=== PATIENT | female | born 1955 | race Caucasian/White ===

== ENCOUNTER 2021-09-07 06:45 | Outpatient (CLI) | payer MEDICARE, SELFPAY ==
--- NOTE | 2021-09-07 | CT_ITS ---
WS: [id number] LDCT LUNG CANCER SCREENING TECHNIQUE: Noncontrast CT of the chest with coronal and sagittal reformatted images. CLINICAL INFORMATION: NICOTINE DEPENDENCE COMPARISON: None. DLP: 75.31 mGy.cm DIvol: 2.[address] scans at [facility] use at least one of these dose optimization techniques: automat ed exposure control; mA and/or kV adjustment per patient size (includes targeted exams where dose is matched to clinical indication); or iterative reconstruction. FINDINGS: Both lungs are well aerated. No acute pulmonary infiltrates. No consolidation or pleural fluid. Subse gmental atelectasis both lower lobes. Chronic appearing anterior wedging in the upper thoracic spine with endplate Schmorl's nodes. Small amount of fibrosis in the lung apices. Small fibrotic appearing subpleural nodule left upper lobe posteriorly measuring 3 mm. Aortic calcification. No mediastinal or hilar lymphadenopathy. No axillary lymphadenopathy. CT/CT lung screening [id number] IMPRESSION: LUNG-RADS: 2-Benign Appearance or Behavior FOLLOW UP: 12 Month: Continue annual screening with LDCT
--- NOTE | 2021-09-07 08:35 | MM_ITS ---
WS: [id number] BILATERAL SCREENING DIGITAL MAMMOGRAM WITH CAD HISTORY: SCREENING COMPARISON: 04/07/2012 and 09/14/2016 and 09/16/2016 Bilateral CC and MLO views submitted. Computer aided detection analyzed. Breast composition: The breasts are heterogeneously dense, which may obscure small masses. No suspici ous masses, microcalcifications or architectural distortion. Calcifications previously described in t he medial LEFT breast have been removed by biopsy. No suspicious masses or increasing calcifications within either breast. MM/[place] [id number] IMPRESSION: BI-RADS: 2-Benign FOLLOW UP: 1 Year Follow-up
== END 2021-09-07 06:46 | disposition home or self-care (01) ==
PROVIDERS: Visit Provider Physician Assistant
DX: Z12.31 Encounter for screening mammogram for malignant neoplasm of breast (principal); Z12.2 Encounter for screening for malignant neoplasm of respiratory organs; F17.210 Nicotine dependence, cigarettes, uncomplicated; J98.11 Atelectasis; M48.54XA Collapsed vertebra, not elsewhere classified, thoracic region, initial encounter for fracture; I70.0 Atherosclerosis of aorta
CPT/HCPCS: 71271; 77067

== ENCOUNTER 2021-09-16 19:59 | Emergency (ER) | payer MEDICARE, SELFPAY ==
[2021-09-16 20:08] VITALS: BP 148/93; PULSE 76; RESP 18; TEMP 36.6; O2SAT 94; BMI 18.6
--- NOTE | 2021-09-16 20:16 | ECG_ITS ---
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 Measurements Intervals [place] Rate: 65 P: 75 RI: 195 QRS: 73 QRSD: 84 T: 61 QT: 392 QTc: 410 Interpretive Statements SINUS RHYTHM Poor R wave progression POSSIBLE LEFT ATRIAL ENLARGEMENT [-0.1mV P-WAVE IN V1/V2] No previous ECG available for comparison Electronically Signed On 09-16-2021 20:46:39 CARDIOLOGIST by Talia Mallory M.D. [email or web address]
--- NOTE | 2021-09-16 20:16 | XRR_ITS ---
PROCEDURE INFORMATION: Exam: XR Chest Exam date and time: 09/16/2021 8:16 PM Age: 66 years old Clinical indication: Pain; Left-sided; Prior surgery; Surgery type: Mold removed from base of lung; Patient HX: Cp, SOB TECHNIQUE: Imaging protocol: XR of the chest. Views: 1 view. COMPARISON: CT lung screening [id number] 09/07/2021 7:08 AM FINDINGS: Lungs: Unremarkable. No consolidation. Pleural spaces: Unremarkable. No pleural effusion. No pneumothorax. Heart/Mediastinum: Unremarkable. No cardiomegaly. Bones/joints: Unremarkable. XR/XR chest 1V portable [id number] IMPRESSION: No acute findings. Radiation Dose CTDIVOL = (mGy): DLP = (mGy-cm)
--- NOTE | 2021-09-16 20:19 | W.ED.CHESTPA ---
HPI - Chest Pain General: Chief Complaint: Chest Pain Stated Complaint: Chest pain Time Seen by Provider: 09/16/21 20:03 Source: patient Mode of arrival: ambulatory Limitations: no limitations History of Present Illness: HPI narrative: States that over the last week she has been under a lot of stress and having intermittent chest pain. She states that she has gets a sharp grabbing pain in her chest at times. States it happened earlier today she was seen by her PCP yesterday and is set up for an outpatient stress test given nitro. States that she was helping a friend in [place] and started having pain with this. States pain is currently 2 out of 10 is improving denies any worsening improving factors. Associated symptoms: Reports dyspnea; Deny abdominal pain, fever(s), nausea or vomiting Review of Systems Const: Denies: fever(s), chills, body aches or change in appetite Eyes: Denies: blurry vision or eye discomfort ENMT: Denies: throat pain or dental pain Card: Reports: chest pain Resp: Reports: dyspnea GI: Denies: abdominal pain, nausea, vomiting or diarrhea : Denies: dysuria Musc: Denies: neck pain or back pain Skin/Breast: Denies: rash Neuro: Denies: headache(s) Psych: Denies: depression Patrick/Lymph: Denies: easy bruising All/Imm: Denies: urticaria PFSH ED PFSH: Social History Smoking and tobacco status: current every day smoker cigarettes Packs smoked per day: 0.5 Years cigarettes smoked: 53 Physical Exam Const: COMMON NORMALS: no acute distress, patient oriented x3 and healthy appearing HENMT: COMMON NORMALS: normocephalic and atraumatic HEAD & SCALP: normocephalic and atraumatic Eye: COMMON NORMALS: Equal, round and reactive pupils present and EOMs intact bilaterally PUPIL: Yes Equal, round and reactive pupils present Neck/C-Spine: COMMON NORMALS: full ROM and supple Chest: COMMONS NORMALS: normal inspection of the chest and normal palpation of entire chest wall Resp: COMMON NORMALS: normal respiratory effort, No retractions, No use of accessory muscles and clear to auscultation bilaterally AUSCULTATION: clear to auscultation bilaterally Cardio: COMMON NORMALS: regular rate, regular rhythm and No murmurs present (Cardio) RATE: regular rate RHYTHM: regular rhythm GI: COMMON NORMALS: Normal to inspection, nondistended, normoactive bowel sounds present, Soft to palpation, non-tender and no masses PALPATION: Yes Soft to palpation Extremity: COMMON NORMALS: normal to inspection and full ROM Neuro: COMMON NORMALS: patient oriented x3, moves all extremities and no focal motor deficits Psych: COMMON NORMALS: mental status grossly normal, Normal thought process present and cooperative THOUGHT PROCESS: Normal thought process present Skin: COMMON NORMALS: no rashes or lesions noted and no wounds GENERAL SKIN EXAM: no rashes or lesions noted Course Vital Signs: Vital signs: Vital Signs Temperature 97.8 F 09/16/21 20:08 Pulse Rate 72 09/16/21 22:18 Respiratory Rate 18 09/16/21 20:24 Blood Pressure 131/72 09/16/21 22:18 Pulse Oximetry 97 09/16/21 22:18 MDM - Chest Pain MDM Narrative: Medical decision making narrative: Patient presents for chest pains atypical in nature initial repeat troponins here are negative D-dimer is negative as well. She feels improved here feel she is stable for discharge she is to get the stress test as scheduled and return if worsening she understands agrees to plan. Lab Data: Labs: Lab Results 09/16/21 09/16/21 09/16/21 20:21 20:21 20:21 WBC 13.7 10^3/uL H 10 ^3/uL (4.0-10.0) RBC 5.51 10^6/uL H 10 ^6/uL (4.1-5.3) Hgb 12.0 g/dL g/dL (11.5-15.3) Hct 35.5 % L % (37.0-47.0) MCV 64.4 fl L fl (81-99) MCH 21.8 pg L pg (28.0-34.0) MCHC 33.8 g/dL g/dL (30.0-36.0) RDW 17.2 % H % (12.1-15.1) Plt Count 350 10^3/cmm 10^3 /cmm (130-400) MPV 10.5 fL H fL (7.4-10.4) Neut % (Auto) 64.3 % % Lymph % (Auto) 26.7 % % Wallace % (Auto) 7.1 % % Eos % (Auto) 1.3 % % Baso % (Auto) 0.3 % % Neut # (Auto) 8.82 10^3/uL H 10 ^3/uL (1.8-7.7) Lymph # (Auto) 3.7 10^3/uL 10^3/ uL (0.8-4.8) Wallace # (Auto) 1.0 10^3/uL H 10^ 3/uL (0.2-0.9) Eos # (Auto) 0.2 10^3/uL 10^3/ uL (0.0-0.8) Baso # (Auto) 0.0 10^3/uL 10^3/ uL (0.0-0.1) Nucleated RBC % (a uto) 0 % % Nucleated RBCs # 0.0 /100WBC /100W BC D-Dimer <= 0.27 ug/mIFEU ug/mIFEU (0-0.59) Sodium 138 mmol/L mmol/L (136-145) Potassium 3.6 mmol/L mmol/L (3.5-5.1) Chloride 102 mmol/L mmol/L (98-107) Carbon Dioxide 22 mmol/L mmol/L (22-29) Anion Gap 17.6 (5-19) BUN 16 mg/dL mg/dL (8-23) Creatinine 0.7 mg/dL mg/dL (0.5-0.9) GFR Calculation 84.2 mL/min L mL/ min (90-130) Glucose 96 mg/dL mg/dL (65-115) Calculated Osmolal ity 287 mOsm/kg mOsm/ kg (285-295) Calcium 9.2 mg/dL mg/dL (8.5-10.5) Total Bilirubin 0.5 mg/dL mg/dL (0.15-1.2) AST 20 U/L U/L (0-32) ALT 20 U/L U/L (0-33) Alkaline Phosphata se 72 IU/L IU/L (35-105) Troponin T Baselin e Troponin T 120 Min [place] Delta Troponin T Total Protein 6.7 g/dL g/dL (6.6-8.7) Albumin 4.3 g/dL g/dL (3.5-5.2) Globulin 2.4 g/dL g/dL (1.3-4.6) 09/16/21 09/16/21 20:21 22:08 WBC RBC Hgb Hct MCV MCH MCHC RDW Plt Count MPV Neut % (Auto) Lymph % (Auto) Wallace % (Auto) Eos % (Auto) Baso % (Auto) Neut # (Auto) Lymph # (Auto) Wallace # (Auto) Eos # (Auto) Baso # (Auto) Nucleated RBC % (a uto) Nucleated RBCs # D-Dimer Sodium Potassium Chloride Carbon Dioxide Anion Gap BUN Creatinine GFR Calculation Glucose Calculated Osmolal ity Calcium Total Bilirubin AST ALT Alkaline Phosphata se Troponin T Baselin e 8 ng/L ng/L (0-10) Troponin T 120 Min [place] 6.41 ng/L ng/L (0-10) Delta Troponin T -1.59 ABS# L ABS# (0-10) Total Protein Albumin Globulin Imaging Data^: CXR: Attestation: I personally reviewed and interpreted this imaging study as follows: Radiologist's impression: [address] [address] XRay Report Signed Patient: Tammie Reddy Unit #: [id number] : 1955 Age/Sex: 66 / F ADM Date: 09/16/21 Loc: ER Room/Bed: Attending Dr: Ordering Provider/Ordering MD: Theodore Luciano MD Date of Service: 09/16/21 Procedure(s): XR chest 1V portable [id number] Accession Number(s): [id number] Report Number: [id number] PROCEDURE INFORMATION: Exam: XR Chest Exam date and time: 09/16/2021 8:16 PM Age: 66 years old Clinical indication: Pain; Left-sided; Prior surgery; Surgery type: Mold removed from base of lung; Patient HX: Cp, SOB TECHNIQUE: Imaging protocol: XR of the chest. Views: 1 view. COMPARISON: CT lung screening [id number] 09/07/2021 7:08 AM FINDINGS: Lungs: Unremarkable. No consolidation. Pleural spaces: Unremarkable. No pleural effusion. No pneumothorax. Heart/Mediastinum: Unremarkable. No cardiomegaly. Bones/joints: Unremarkable. XR/XR chest 1V portable [id number] IMPRESSION: No acute findings. Radiation Dose CTDIVOL = (mGy): DLP = (mGy-cm) Dictated By: Geovanny Cohen MD Signed By: Geovanny Cohen MD Signed Date/Time: 09/16/212036 DD/ 15 EKG Data^: EKG 1: Attestation: I personally reviewed and interpreted this EKG as follows: EKG interpretation date: 09/16/21 EKG interpretation time: 20:13 Interpretation: nsr hr [address] or t wave abnormalities qrs 84 qtc 404 Discharge Plan Discharge Patient Disposition: Home Clinical Impression: Chest pain Qualifiers: Chest pain type: unspecified Qualified Code(s): R07.9 - Chest pain, unspecified Condition: Stable Prescriptions: No Action No Known Home Medications RF: 0 Discharge Orders: Discharge ED (Routine); Ordered 09/16/21 Ordered By: Theodore Luciano Referrals: [facility], [Primary Care Provider] - Discharge Diet: Advance as tolerated Discharge Activity: Resume usual activity Patient Instructions: Chest Pain (ED) Coding Level of Care Code ED Serology Teacher for Chg Fwd Exam Comprehensive
[2021-09-16 20:24] VITALS: BP 148/93; PULSE 68; RESP 18; O2SAT 96
[2021-09-16 20:30] LABS: Basophils % 0.3 %; Eosinophils # 0.2 10^3/uL (0.0-0.8); Eosinophils % 1.3 %; Hematocrit 35.5 % (37.0-47.0); Lymphocytes # 3.7 10^3/uL (0.8-4.8); Lymphocytes % 26.7 %; Mean Corpuscular HGB Conc 33.8 g/dL (30.0-36.0); Mean Corpuscular Hemoglobin 21.8 pg (28.0-34.0); Mean Corpuscular Volume 64.4 fl (81-99); Mean Platelet Volume 10.5 fL (7.4-10.4); Monocytes % 7.1 %; Neutrophils # 8.82 10^3/uL (1.8-7.7); Neutrophils % 64.3 %; Nucleated Red Blood Cells % 0 %; Platelet Count 350 10^3/cmm (130-400); Red Blood Count 5.51 10^6/uL (4.1-5.3); Red Cell Distribution Width 17.2 % (12.1-15.1); White Blood Count 13.7 10^3/uL (4.0-10.0)
[2021-09-16 20:54] LABS: D Dimer <= 0.27 ug/mIFEU (0-0.59)
[2021-09-16 20:55] LABS: Slide Review Slide Review Perform
[2021-09-16 21:03] LABS: Troponin(5th) Baseline 8 ng/L (0-10)
[2021-09-16 21:07] LABS: Alanine Aminotransferase 20 U/L (0-33); Albumin Level 4.3 g/dL (3.5-5.2); Alkaline Phosphatase 72 IU/L (35-105); Anion Gap 17.6 (5-19); Aspartate Amino Transferase 20 U/L (0-32); Blood Urea Nitrogen 16 mg/dL (8-23); Calcium 9.2 mg/dL (8.5-10.5); Carbon Dioxide 22 mmol/L (22-29); Chloride 102 mmol/L (98-107); Globulin 2.4 g/dL (1.3-4.6); Glomerular Filtration Rate 84.2 mL/min (90-130); Glucose 96 mg/dL (65-115); Osmolality Calculated 287 mOsm/kg (285-295); Potassium 3.6 mmol/L (3.5-5.1); Sodium 138 mmol/L (136-145); Total Bilirubin 0.5 mg/dL (0.15-1.2); Total Protein 6.7 g/dL (6.6-8.7)
[2021-09-16 21:35] VITALS: BP 129/71; PULSE 69; O2SAT 97
[2021-09-16 22:18] VITALS: BP 131/72; PULSE 72; O2SAT 97
[2021-09-16 22:48] LABS: Troponin 5 2HR 6.41 ng/L (0-10)
[2021-09-16 22:49] LABS: Troponin 5 2HR Delta -1.59 ABS# (0-10)
[2021-09-16 23:21] VITALS: BP 123/78; PULSE 72; O2SAT 98
== END 2021-09-16 23:20 | disposition home or self-care (01) ==
PROVIDERS: Emergency Provider Emergency Medicine
DX: R07.9 Chest pain, unspecified (principal); F17.210 Nicotine dependence, cigarettes, uncomplicated
CPT/HCPCS: 36415; 71045; 80053; 84484; 85025; 85378; 93005; 99283

== ENCOUNTER 2021-10-23 08:56 | Outpatient (CLI) | payer MEDICARE, SELFPAY ==
[2021-10-23 09:12] VITALS: BMI 16.7
--- NOTE | 2021-10-23 09:12 | ECG_ITS ---
[facility] Test Date: 2021-10-23 Pat Name: Tammie Reddy Department: Room: Gender: Female Ux Visual Designer: : 1955 Requested By: Yasemin Briceno Order Number: [id number] Last MD: EMMETT ABAD Interpretive Statements NAME OF STUDY: EXERCISE SESTAMIBI STRESS TEST INDICATION: Stable Angina EXERCISE DATA: The patient was exercised by Steven protocol. Baseline heart rate was 83 beats per minute. Baseline blood pressure was 143/70 millimeters of mercury. Target heart rate was 156 beats per minute. Maximum heart rate achieved was 142, which was 91% of the target heart rate. Maximum blood pressure was 180/73 millimeters of mercury. Total exercise time was 9 minutes 30 sec. Maximum METs achieved was 13.5, maximum VO2 was 47.3. The reason for ending the test was maximal effort achieved. The patient complained of shortness of breath during the stress test, which then resolved at the end of the test. ELECTROCARDIOGRAM: BASELINE: Showed sinus rhythm, normal axis, no significant ST-T changes at the baseline noted. EXERCISE: At the peak exercise level, no significant ST-T changes suggestive of ischemia noted. RECOVERY: During the recovery period, heart rate dropped appropriately. No significant ST-T changes in the recovery suggestive of ischemia noted. CONCLUSION: 1. Exercise capacity good. 2. Heart rate response was appropriate. 3. Blood pressure response was appropriate. 4. Symptoms not suggestive of ischemia. 5. Electrocardiogram portion of the stress test was not suggestive of ischemia. 6. Nuclear scan will be documented separately. Electronically Signed On 10-27-2021 21:43:34 MEMORIAL MARKER DESIGNER by EMMETT ABAD [id number]
--- NOTE | 2021-10-23 09:16 | NMCV_ITS ---
NM telma perf SPECT r/s* [id number] Tammie Reddy Age: 66 Gender: F : 1955 Exam Date: 10/23/2021 09:16 Ordering Phys: Yasemin Otero Technologist: HOWIE Cardenas Exam Location: [facility] Indications: SHORTNESS OF BREATH STRESS TEST Please see separate stress test report in [facility] for full findings IMAGE PROTOCOL Rest/Stress 1 Exercise Day Radiopharmaceutical Dose (mCi) Administration Site Administered by Rest: Tc-99m 10.5 IV HOWIE Fields Sestamibi Stress:Tc-99m 31.9 IV HOWIE Cardenas Sestamiluna Rest: 23-Oct-2021 60 Discovery 630 Stress: 23-Oct-2021 15 Discovery 630 Radiopharmaceutical was injected at 85 % maximum heart rate. Images obtained in supine and prone position. SPECT RESULTS Technical Quality: Excellent Raw Data Analysis: Normal Image Corrections: No attenuation or motion correction applied Summed Stress Score: 0 Summed Rest Score: 0 Summed Difference Score: 0 PERFUSION FINDINGS SPECT images demonstrate homogeneous tracer distribution throughout the myocardium. FUNCTIONAL RESULTS (calculated via Gated SPECT) Stress Image LV EF (%): 79 Stress EDV (mL):67 TID: 0.95 Stress ESV (mL):14 Rest Image LV EF (%): 79 FUNCTIONAL FINDINGS: There is normal left ventricular systolic function. IMPRESSIONS Myocardial perfusion imaging is normal. EKG segment will be documented separately Brian Hughes MD (Electronically Signed) Final Date: 24 October 2021 15:13 S
[2021-10-23 12:07] VITALS: BP 122/68; PULSE 86
== END 2021-10-23 08:57 | disposition home or self-care (01) ==
PROVIDERS: PCP Physician Assistant; Visit Provider Physician Assistant
DX: I20.8 Other forms of angina pectoris (principal); R06.02 Shortness of breath
CPT/HCPCS: 78452; 93017; A9500

== ENCOUNTER 2021-12-17 05:31 | Emergency (ER) | payer MEDICARE, SELFPAY ==
[2021-12-17] VITALS (9 sets, daily range): BP systolic 131–144; BP diastolic 58–70; PULSE 53–69; RESP 15–25; TEMP 36.6; O2SAT 97–100; BMI 19.0
--- NOTE | 2021-12-17 05:40 | XRR_ITS ---
PROCEDURE INFORMATION: Exam: XR Abdomen Exam date and time: 12/17/2021 5:40 AM Age: 66 years old Clinical indication: Abdominal pain; Generalized; Prior surgery; Surgery type: Hysterectomy; Patient HX: Patient was prepping for a colonoscopy this morning and presents to er in excruciating diffuse abd pain with nausea. TECHNIQUE: Imaging protocol: XR of the abdomen. Views: Frontal supine view of the abdomen. 1 View. COMPARISON: CR XR chest 1V portable [id number] 09/16/2021 8:23 PM FINDINGS: Gastrointestinal tract: Nonspecific bowel gas pattern. Intraperitoneal space: No free air. Bones/joints: Degenerative changes of the spine seen. XR/XR KUB portable [id number] IMPRESSION: Nonspecific bowel gas pattern.
[2021-12-17] MEDS: ondansetron 2 mg/ML SDV 2 mL 4 MG IVP (05:51)
[2021-12-17] MEDS: morphine 4 mg/mL SDV 1 mL IVP ×3 (05:51→07:42)
[2021-12-17] MEDS: sodium chloride 0.9% 1,000 ML 999 ML IV ×3 (05:53→08:15)
--- NOTE | 2021-12-17 05:54 | W.ED.ABDPA2 ---
HPI - Abdominal Pain General: Chief Complaint: Abdominal Pain Stated Complaint: abd pain Time Seen by Provider: 12/17/21 05:46 Source: patient Mode of arrival: ambulatory Limitations: no limitations History of Present Illness: 66-year-old female presents to the emergency room with complaints of abdominal pain. She localizes the pain to the right lower quadrant. She was doing prep for routine screening colonoscopy overnight pain began around 3 AM. She did have 1 loose bowel movement after the pain began there is no hematochezia or melena. She has not vomited but is very nauseous. She has previously had colonoscopies without difficulties. States that after taking all the prep she only had a couple of small the media bowel movements no significant amounts. She is previously had a hysterectomy denies any other abdominal surgeries. After arrival here is noted severity of the pain seems to come and go in waves. MD elicited complaint: abdominal pain Pertinent past history: other (Patient was prepping for colonoscopy overnight) Onset (ago): hour(s) Pain Consistency: intermittent Location: RLQ Severity: severe Quality: cramping and stabbing Radiation: none Exacerbating factors: nothing Relieving factors: nothing Associated Symptoms: Reports bloating, diarrhea and poor appetite; Denies anorexia, belching, change in bowel habits, change in stool character, chills, coffee ground emesis, constipation, GI cramping, dyspepsia, dysuria, excessive flatus, fever(s), heartburn, hematochezia, hematuria, hematemesis, fecal incontinence, loose stools, melena, nausea, syncope and vomiting Review of Systems Const: Denies: fever(s) or chills ENMT: Denies: throat pain, ear or mastoid pain, nasal discharge or nasal congestion Card: Denies: syncope Resp: Denies: dyspnea, productive cough or non-productive cough GI: Reports: diarrhea and bloating; Denies: nausea, vomiting, hematemesis, coffee ground emesis, heartburn, constipation, GI cramping, belching, excessive flatus, fecal incontinence, change in bowel habits, change in stool character, hematochezia or melena : Denies: dysuria or hematuria Skin/Breast: Denies: rash or pruritus PFS ED PFSH: Medical History Glossitis Xerostomia Surgical History History of hysterectomy History of lumpectomy of left breast History of lung surgery Social History Smoking and tobacco status: current every day smoker cigarettes Packs smoked per day: 0.5 Years cigarettes smoked: 53 Female Reproductive History: Other reproductive history: Previous hysterectomy Physical Exam Narrative: EXAM NARRATIVE: Limited abdominal exam due to patient's discomfort and inability to cooperate Const: ORIENTATION/CONSCIOUSNESS: Yes awake, Yes oriented to person, Yes oriented to place and Yes oriented to time HENMT: COMMON NORMALS: normocephalic, atraumatic and hearing grossly normal bilaterally HEAD & SCALP: normocephalic and atraumatic Neck/C-Spine: COMMON NORMALS: no JVD Resp: COMMON NORMALS: normal respiratory effort, No retractions, No use of accessory muscles and clear to auscultation bilaterally AUSCULTATION: clear to auscultation bilaterally Cardio: COMMON NORMALS: no JVD, regular rate, regular rhythm and No murmurs present (Cardio) RATE: regular rate RHYTHM: regular rhythm GI: AUSCULTATION: Yes normoactive bowel sounds PALPATION: Yes Tenderness to palpation present (GI) (Diffuse unable to localize) and Yes Guarding due to palpation present (GI) (Appears voluntary even with light touch) : COMMON NORMALS: Yes no CVA tenderness BLADDER/KIDNEY EXAM: Yes no CVA tenderness Back/Pelvis: COMMON NORMALS: no CVA tenderness Extremity: COMMON NORMALS: normal to inspection, capillary refill normal, no clubbing, cyanosis or edema, no calf tenderness and no pedal edema Neuro: SENSORIUM/ORIENTATION: Yes oriented to person, Yes oriented to place and Yes oriented to time Skin: COMMON NORMALS: no rashes or lesions noted GENERAL SKIN EXAM: no rashes or lesions noted Course Vital Signs: Vital signs: Vital Signs Temperature 97.8 F 12/17/21 05:37 Pulse Rate 60 12/17/21 09:43 Respiratory Rate 15 12/17/21 09:43 Blood Pressure 137/63 12/17/21 09:43 Pulse Oximetry 97 12/17/21 09:43 MDM - Abdominal Pain Medical Decision Making Pain improved after titrated doses of morphine and Phenergan. CT shows retained fluid contents in the bowel proximal to the hepatic flexure. There is no obvious obstruction I think the prep that she took is causing a lot of cramping she is much better now she has what looks to be a reactive leukocytosis there is no surgical findings on the CT discussed with Dr. Lindsey. She was closely Dr. Zhao today for colonoscopy called and discussed with him of concern would be the fact that it stopped at the hepatic flexure even though there is no identifiable mass or restriction there. We will have her use some enemas clear liquid diet for the next 48 hours advance as tolerated contact Dr. Zhao's office to reschedule. Medical Records I reviewed the patient's medical records. Lab Data I reviewed the patient's lab results. : 12/17/21 05:50 12/17/21 05:50 Labs/Radiology: Radiology Impressions KUB X-Ray 12/17/21 05:40 IMPRESSION: Nonspecific bowel gas pattern. Abdomen/Pelvis CT 12/17/21 06:02 IMPRESSION: 1. Stomach and small bowel are fluid distended. Proximal colon is also fluid distended. Cause of obstruction is not apparent. There is a changing caliber near the hepatic flexure but no mass identified. As per Dr. Ward patient was receiving prep for colonoscopy and increased fluid content is probably secondary to the preparation. 2. The appendix is not identified. 3. There are a few tiny foci of air which cannot be definitely placed placed within the lumen or extraluminal in the RIGHT lower quadrant. Correlate with lactic acid levels. 4. Prior hysterectomy. 5. No ascites. Notified Vince Ward DO at 12/17/2021 8:10 AM. Laboratory Results WBC 14.1 10^3/uL (4.0-10.0) H 12/17/21 05:50 RBC 6.37 10^6/uL (4.1-5.3) H 12/17/21 05:50 Hgb 13.7 g/dL (11.5-15.3) 12/17/21 05:50 Hct 41.5 % (37.0-47.0) 12/17/21 05:50 MCV 65.1 fl (81-99) L 12/17/21 05:50 MCH 21.5 pg (28.0-34.0) L 12/17/21 05:50 MCHC 33.0 g/dL (30.0-36.0) 12/17/21 05:50 RDW 17.5 % (12.1-15.1) H 12/17/21 05:50 Plt Count 463 10^3/cmm (130-400) H 12/17/21 05:50 MPV 10.9 fL (7.4-10.4) H 12/17/21 05:50 Neut % (Auto) 68.4 % 12/17/21 05:50 Lymph % (Auto) 25.5 % 12/17/21 05:50 [place] % (Auto) 4.0 % 12/17/21 05:50 Eos % (Auto) 1.1 % 12/17/21 05:50 Baso % (Auto) 0.6 % 12/17/21 05:50 Neut # (Auto) 9.65 10^3/uL (1.8-7.7) H 12/17/21 05:50 Lymph # (Auto) 3.6 10^3/uL (0.8-4.8) 12/17/21 05:50 [place] # (Auto) 0.6 10^3/uL (0.2-0.9) 12/17/21 05:50 Eos # (Auto) 0.2 10^3/uL (0.0-0.8) 12/17/21 05:50 Baso # (Auto) 0.1 10^3/uL (0.0-0.1) 12/17/21 05:50 Nucleated RBC % (auto) 0 % 12/17/21 05:50 Nucleated RBCs # 0.0 /100WBC 12/17/21 05:50 Sodium 130 mmol/L (136-145) L 12/17/21 05:50 Potassium 4.0 mmol/L (3.5-5.1) 12/17/21 05:50 Chloride 96 mmol/L (98-107) L 12/17/21 05:50 Carbon Dioxide 17 mmol/L (22-29) L 12/17/21 05:50 Anion Gap 21.0 (5-19) H 12/17/21 05:50 BUN 11 mg/dL (8-23) 12/17/21 05:50 Creatinine 0.9 mg/dL (0.5-0.9) 12/17/21 05:50 GFR Calculation 63.0 mL/min (90-130) L 12/17/21 05:50 Glucose 154 mg/dL (65-115) H 12/17/21 05:50 Calculated Osmolality 272 mOsm/kg (285-295) L 12/17/21 05:50 Lactate 1.8 mmol/L (0.5-2.2) 12/17/21 07:12 Calcium 10.9 mg/dL (8.5-10.5) H 12/17/21 05:50 Total Bilirubin 0.8 mg/dL (0.15-1.2) 12/17/21 05:50 AST 29 U/L (0-32) 12/17/21 05:50 ALT 23 U/L (0-33) 12/17/21 05:50 Alkaline Phosphatase 101 IU/L (35-105) 12/17/21 05:50 Total Protein 7.7 g/dL (6.6-8.7) 12/17/21 05:50 Albumin 5.2 g/dL (3.5-5.2) 12/17/21 05:50 Globulin 2.5 g/dL (1.3-4.6) 12/17/21 05:50 Lipase 102 U/L (13-60) H 12/17/21 05:50 Discharge Plan Discharge Patient Disposition: Home Clinical Impression: Abdominal pain, Side effect of medication Condition: Stable Prescriptions: New promethazine 25 mg tablet 25 mg PO Q6H PRN (Reason: nausea and vomiting) Qty: 20 0RF No Action Nitrostat 0.4 mg Tablet, Sublingual 0.4 mg SUBLINGUAL Q5M PRN (Reason: Chest Pain) 0RF Rx Instructions: do not exceed 3 doses per episode David-E 400 mg Tablet 400 mg PO DAILY 0RF Rx Instructions: administer on an empty stomach Multi For Her 50 Plus 400-80 mcg Capsule 1 cap PO DAILY 0RF Discharge Orders: Discharge ED (Routine); Ordered 12/17/21 Ordered By: Vince Ward Referrals: Yasemin Otero PA [Primary Care Provider] - Discharge Diet: Clear Liquid Patient Instructions: Abdominal Pain (ED), Opioid Safety Activity Restrictions/Additional Instructions: Clear liquid diet for 48 hours then advance as tolerated. Follow-up with Dr. Zhao to reschedule your colonoscopy. Coding Level of Care Code ED Business Support Professional for Chg Fwd Exam Comprehensive
[2021-12-17 05:58] LABS: Basophils # 0.1 10^3/uL (0.0-0.1); Basophils % 0.6 %; Eosinophils # 0.2 10^3/uL (0.0-0.8); Eosinophils % 1.1 %; Hematocrit 41.5 % (37.0-47.0); Hemoglobin 13.7 g/dL (11.5-15.3); Lymphocytes # 3.6 10^3/uL (0.8-4.8); Lymphocytes % 25.5 %; Mean Corpuscular Hemoglobin 21.5 pg (28.0-34.0); Mean Corpuscular Volume 65.1 fl (81-99); Mean Platelet Volume 10.9 fL (7.4-10.4); Monocytes # 0.6 10^3/uL (0.2-0.9); Neutrophils # 9.65 10^3/uL (1.8-7.7); Neutrophils % 68.4 %; Nucleated Red Blood Cells % 0 %; Platelet Count 463 10^3/cmm (130-400); Red Blood Count 6.37 10^6/uL (4.1-5.3); Red Cell Distribution Width 17.5 % (12.1-15.1); White Blood Count 14.1 10^3/uL (4.0-10.0)
--- NOTE | 2021-12-17 06:02 | CT_ITS ---
WS: [id number] CT ABDOMEN AND PELVIS WITH CONTRAST HISTORY: Worsening abdominal pain for 3 months. Nausea and vomiting. TECHNIQUE: Imaging performed of the abdomen and pelvis with IV contrast. Single phase imaging of the abdomen. Coronal and sagittal reformats are submitted. All CT scans at [facility] use at [address] one of these dose optimization techniques: automated exposure control; mA and/or kV adjustment per patient size (includes targeted exams where dose is matched to clinical indication); or iterative re construction. IV CONTRAST: Omnipaque 300; 75 mL IV. Oral contrast: No DLP: 633.88 mGy.cm COMPARISON: None available. Lower thorax: Linear atelectasis at the RIGHT lung base. Mildly enlarged cardiac chambers. No hiatal hernia. Liver/biliary system: Normal size liver. Low-attenuation 5 mm nodule in the LEFT lobe of the liver is too small to characterize. No additional nodules. Normal portal vein. Gallbladder: Normal. No gallstones or wall thickening. No pericholecystic fluid. Pancreas: 2 mm stone in the pancreatic head towards the uncinate process. This stone does appear jose d cent to the pancreatic duct and the common bile duct. Spleen: Normal size spleen. No mass or infarct. Adrenal glands: Normal. Right kidney: Normal. Left kidney: Normal. Aorta: Mild atherosclerosis with no aneurysm. Lymphadenopathy: None. Free fluid: None. GI tract: Moderate distention of the stomach with fluid. There is mild fluid distention of the small bowel. Increasing fluid in the distal small bowel and the proximal colon. The appendix is not definit billie identified. There are several tiny foci of air in the RIGHT lower quadrant which cannot definitel y be placed within the lumen of the GI tract or external to the GI tract. There is a slight change in transition near the hepatic flexure of the colon. Abdominal wall: Unremarkable abdominal wall. No hernia. Pelvis: No free fluid. Prior hysterectomy. Dilated, fluid-filled loops of small bowel extend into the pelvis. Bones: Mild spondylitic changes. CT/CT abdomen pelvis w con* [id number] IMPRESSION: 1. Stomach and small bowel are fluid distended. Proximal colon is also fluid d istended. Cause of obstruction is not apparent. There is a changing caliber serafin r the hepatic flexure but no mass identified. As per Dr. Ward patient was r eceiving prep for colonoscopy and increased fluid content is probably secondary to the preparation. 2. The appendix is not identified. 3. There are a few tiny foci of air which cannot be definitely placed placed w ithin the lumen or extraluminal in the RIGHT lower quadrant. Correlate with lac tic acid levels. 4. Prior hysterectomy. 5. No ascites. Notified Vince Ward DO at 12/17/2021 8:10 AM.
[2021-12-17 06:17] LABS: Albumin Level 5.2 g/dL (3.5-5.2); Alkaline Phosphatase 101 IU/L (35-105); Blood Urea Nitrogen 11 mg/dL (8-23); Calcium 10.9 mg/dL (8.5-10.5); Carbon Dioxide 17 mmol/L (22-29); Chloride 96 mmol/L (98-107); Globulin 2.5 g/dL (1.3-4.6); Glucose 154 mg/dL (65-115); Lipase 102 U/L (13-60); Osmolality Calculated 272 mOsm/kg (285-295); Sodium 130 mmol/L (136-145); Total Bilirubin 0.8 mg/dL (0.15-1.2); Total Protein 7.7 g/dL (6.6-8.7)
[2021-12-17 06:20] LABS: Alanine Aminotransferase 23 U/L (0-33); Aspartate Amino Transferase 29 U/L (0-32)
[2021-12-17 06:22] LABS: Slide Review Slide Review Perform
[2021-12-17] MEDS: iohexol 300 mg/mL 100 mL Btl IV (07:35)
--- NOTE | 2021-12-17 07:35 | PC.NURSE ---
Received report assumed care. No changes noted from report. Continues to moan with pain. States pain meds arent helping.
[2021-12-17 07:46] LABS: Lactate (Lactic Acid level) 1.8 mmol/L (0.5-2.2)
[2021-12-17] MEDS: promethazine 25 mg/mL SDV 1 mL IM (07:48)
== END 2021-12-17 09:46 | disposition home or self-care (01) ==
PROVIDERS: Emergency Medicine; Emergency Provider Family Medicine; PCP Physician Assistant
DX: R10.9 Unspecified abdominal pain (principal); T50.905A Adverse effect of unspecified drugs, medicaments and biological substances, initial encounter; F17.210 Nicotine dependence, cigarettes, uncomplicated
CPT/HCPCS: 36415; 74018; 74177; 80053; 83605; 83690; 85025; 96361; 96372; 96374; 96375; 96376; 99284; J2270; J2405; J2550; J7030; Q9967

== ENCOUNTER 2022-10-04 13:41 | Outpatient (CLI) | payer MEDICARE, SELFPAY ==
--- NOTE | 2022-10-04 13:46 | CT_ITS ---
WS: [id number] LDCT LUNG CANCER SCREENING HISTORY: NICOTINE DEPENDENCE, CIGARETTES TECHNIQUE: Axial imaging performed from the apices to 1 cm below the costophrenic angles. Coronal and sagittal reformats are submitted with axial MIP series. All CT scans at [facility] use at least one of these dose optimization techniques: automated exposure control; mA and/or kV adjustment per patient size (includes targeted exams where dose is matched to clinical indication); or iterativ e reconstruction. DLP: 73.19 mGy.cm DIvol: Mean CTDIvol: 1.60 (mGy) COMPARISON: 09/07/2021 Diagnostic quality: Satisfactory Lung Nodules: No new or enlarging pulmonary nodules. Again noted is a 3 mm subpleural nodule in the p osterior LEFT upper lobe. Linear subsegmental areas of atelectasis in the lower lung ochoa bilateral ly. No endobronchial lesions. Lungs: Hyperexpanded from emphysema. Heart: Mild cardiomegaly. The very small amount of pleural thickening. Other findings: No adenopathy. Mild atherosclerosis aorta and ectasia. Mild anterior wedging of T5 an d T6 from Schmorl's nodes. CT/CT lung screening [id number] IMPRESSION: LUNG-RADS: 1-Negative FOLLOW UP: 12 Month: Continue annual screening with LDCT OTHER FINDINGS (S MODIFIER): None.
--- NOTE | 2022-10-04 14:23 | MR_ITS ---
WS: [id number] MRI CERVICAL SPINE NONCONTRAST HISTORY: CERVICAL RADICULOPATHY COMPARISON: None available. Technique: Multiplanar, multisequence noncontrast imaging of the cervical spine. Moderate increase in cervical lordosis. 2 mm anterolisthesis of C2. Severe disc space narrowing with disc bulging and osteophytosis from C3 through C6. Small amount of increased T2 signal in the RIGHT lateral cervical cord at C5-6. Craniocervical junction, C1 and C2 relationship, odontoid process and soft tissues are normal. C2-C3: Normal. C3-C4: Osteophytic ridging and disc bulging. Moderate LEFT disc osteophyte complex causing mild encro achment into the foramen. Small central disc protrusion. Mild central and bilateral foraminal stenosi s. C4-C5: Marked annular disc bulging and osteophytic ridging. Moderate size central disc protrusion wit h bilateral foraminal osteophytes. There is deformity of the cervical canal. Severe central and moder ate foraminal stenosis. C5-C6: Diffuse osteophytic ridging with central disc protrusion. Bilateral foraminal osteophytes. Sev ere central with moderate foraminal stenosis. C6-C7: Mild disc bulging and facet arthritis. No high-grade stenosis. C7-T1: Normal. Paraspinal soft tissue are normal. MR/MR cervical spin wo con* [id number] IMPRESSION: 1. Severe central and moderate bilateral foraminal stenosis at C4-5 and C5-6 d ue to combination of disc and osteophytosis. 2. Focal myelomalacia RIGHT lateral cord at C5-6. 3. Moderate LEFT foraminal disc osteophyte complex at C3-4. 4. Small central disc protrusion at C3-4. Mild central and bilateral foraminal stenosis.
== END 2022-10-04 13:42 | disposition home or self-care (01) ==
LOC: RAD 13:41
PROVIDERS: PCP Physician Assistant; Visit Provider Physician Assistant
DX: Z12.2 Encounter for screening for malignant neoplasm of respiratory organs (principal); F17.210 Nicotine dependence, cigarettes, uncomplicated; M54.16 Radiculopathy, lumbar region; M48.02 Spinal stenosis, cervical region; G95.89 Other specified diseases of spinal cord; M25.78 Osteophyte, vertebrae; M50.21 Other cervical disc displacement, high cervical region
CPT/HCPCS: 71271; 72141

== ENCOUNTER 2023-01-21 13:26 | Outpatient (CLI) | payer OTHER, SELFPAY ==
--- NOTE | 2023-01-21 13:37 | XR_ITS ---
WS: [id number] SCREENING DEXA SCAN [employer] CLINICAL INFORMATION: OSTEOPOROSIS COMPARISON: None. FINDINGS: The L1-L4 bone mineral density measures 0.973 g/cm2. This corresponds to a T score score of -1.7 and Z score of 0.6. Left femoral neck bone mineral density measures 0.667 g/cm2. This corresponds to a T score of -2.7 an d Z score of -1.0. Right femoral neck bone mineral density measures 0.658 g/cm2. This corresponds to a T score -2.8of an d Z score of -1.1. Mean femoral neck bone mineral density measures 0.663 g/cm2. This corresponds to a T score of -2.7 an d Z score of -1.0. XR/XR DEXA axial skeleton* [id number] IMPRESSION: Osteopenia lumbar spine. Osteoporosis femoral necks. Patient's FRAX calculated 10 year probability for major osteoporotic fracture i s 17.4 % and osteoporotic hip fracture is 8.4%.
== END 2023-01-21 13:27 | disposition home or self-care (01) ==
PROVIDERS: PCP Family Medicine; Visit Provider Family Medicine
DX: M81.0 Age-related osteoporosis without current pathological fracture (principal)
CPT/HCPCS: 77080

== ENCOUNTER 2023-02-02 10:01 | Outpatient (RCR) | payer OTHER, SELFPAY | END 2023-02-04 23:59 | disposition home or self-care (01) | LOC: SOT 10:01 | PROVIDERS: PCP Family Medicine; Visit Provider Family Medicine | DX: S54.02XD Injury of ulnar nerve at forearm level, left arm, subsequent encounter (principal); X58.XXXD Exposure to other specified factors, subsequent encounter | CPT/HCPCS: 97110; 97165 ==

== ENCOUNTER 2023-03-18 10:12 | Emergency (ER) | payer OTHER, SELFPAY ==
[2023-03-18 10:29] VITALS: BP 153/88; PULSE 68; RESP 18; TEMP 36.8; O2SAT 99; BMI 18.1
--- NOTE | 2023-03-18 10:44 | W.ED.ABDPA2 ---
HPI - Abdominal Pain General: Chief Complaint: Abdominal Pain Stated Complaint: upper abd pain Time Seen by Provider: 03/18/23 10:30 Source: patient Mode of arrival: ambulatory Limitations: no limitations History of Present Illness: Patient is a 68-year-old female who presents to the ED today with a complaint of upper abdominal pain/cramping. Patient states she felt normal when she woke up this morning but began noticing some epigastric crampy-like sensation that seems to be intermittent. She states she never had any nausea or vomiting. Pain does not seem to radiate into her chest and she does not complain of any chest pain, shortness of breath, difficulty breathing, palpitations. Bowel movements have been normal. No urinary symptoms. She has not had any fevers. No previous abdominal surgeries. She also states when pain began she also had 1-2 episodes where her left eye became slightly blurry. Upon arrival to the ED she states her vision is normal. She states she never had any loss of vision. No neurologic complaints or deficits. MD elicited complaint: abdominal pain Pertinent past history: none Onset (ago): hour(s) Pain Consistency: intermittent Location: Epigastric Severity: moderate Quality: cramping Radiation: none Migration to: no migration Exacerbating factors: nothing Relieving factors: nothing Associated Symptoms: Denies change in bowel habits, chills, diarrhea, dysuria, fever(s), nausea, syncope and vomiting Related Data: Patient : No Review of Systems Const: Denies: fever(s), chills, body aches, fatigue or malaise Eyes: Reports: blurry vision (resolved now); Denies: blind spots, photophobia, eye discomfort, eye discharge, eye redness, floaters or seeing flashes Card: Denies: chest pain, palpitations, irregular heart rhythm, edema, lightheadedness, syncope or pre-syncope Resp: Denies: dyspnea, pain on inspiration or chest congestion GI: Reports: abdominal pain; Denies: nausea, vomiting, diarrhea or change in bowel habits : Denies: flank pain, difficulty voiding, dysuria, urinary frequency or urinary urgency Musc: Denies: neck pain, back pain, extremity pain or joint pain Skin/Breast: Denies: rash Neuro: Denies: headache(s), numbness in extremities, weakness in extremities, sensory changes, lack of coordination, difficulty walking, dizziness, vertigo, confusion, behavioral changes, Slurred speech present, difficulty communicating thoughts or seizure-like activity PFSH ED PFSH: Medical History Glossitis Xerostomia Surgical History History of hysterectomy History of lumpectomy of left breast History of lung surgery Social History Smoking and tobacco status: current every day smoker cigarettes Packs smoked per day: 0.5 Years cigarettes smoked: 53 Physical Exam Const: COMMON NORMALS: no acute distress, patient oriented x3, no limitations, alert and well nourished GENERAL APPEARANCE: cooperative ORIENTATION/CONSCIOUSNESS: Yes awake, Yes oriented to person, Yes oriented to place and Yes oriented to time HENMT: COMMON NORMALS: normocephalic and atraumatic HEAD & SCALP: normal to inspection, normocephalic and atraumatic FACE & SINUS: normal facial exam MOUTH: tongue normal (no deviation ) Eye: COMMON NORMALS: Equal, round and reactive pupils present, EOMs intact bilaterally, conjunctivae normal and normal visual flores by confrontation GENERAL EYE: appearance normal, both eyes and all related structures and normal light reflex VISUAL ACUITY: Yes acuity normal VISUAL FLORES: No peripheral vision loss, No central vision loss, No left visual field cut, No right visual field cut, No bitemporal visual field cut, No binasal visual field cut and No visual field cut by quadrant ALIGNMENT: Yes alignment normal PERIORBITAL: periorbital findings normal EYELID: eyelids normal CONJUNCTIVA: Yes conjunctivae normal SCLERA: sclerae normal CORNEA: Yes corneas normal PUPIL: Yes Equal, round and reactive pupils present and Yes Pupil accommodation reflex normal DIRECT OPHTHALMOSCOPY: Yes normal light reflex Neck/C-Spine: COMMON NORMALS: full ROM, no lymphadenopathy, supple and no meningeal signs Chest: COMMONS NORMALS: normal inspection of the chest and normal palpation of entire chest wall Resp: COMMON NORMALS: normal respiratory effort and clear to auscultation bilaterally AUSCULTATION: clear to auscultation bilaterally Cardio: COMMON NORMALS: regular rate and regular rhythm RATE: regular rate RHYTHM: regular rhythm GI: COMMON NORMALS: Normal to inspection, nondistended, normoactive bowel sounds present, Soft to palpation, No hepatosplenomegaly present and no masses INSPECTION: Yes normal to inspection AUSCULTATION: Yes normoactive bowel sounds PALPATION: Yes Soft to palpation, Yes Tenderness to palpation present (GI) (epigastric ), No Guarding due to palpation present (GI), No Rigid due to palpation and Yes No hepatosplenomegaly present : COMMON NORMALS: Yes no CVA tenderness BLADDER/KIDNEY EXAM: Yes no CVA tenderness Back/Pelvis: COMMON NORMALS: no CVA tenderness and thoracic and lumbar spine normal to inspection Extremity: COMMON NORMALS: normal to inspection GENERAL: Yes normal exam except as noted Neuro: MARIA ESTHER COMA SCALE: document GCS findings Patrick coma scale eye opening: Spontaneous Patrick coma scale verbal response: Orientated Maria Esther coma scale motor response: Obey commands Maria Esther coma scale total score: 15 COMMON NORMALS: patient oriented x3, CN's II-XII intact bilaterally, moves all extremities, no focal motor deficits, no sensory deficits noted and gait normal SENSORIUM/ORIENTATION: Yes alert, Yes oriented to person, Yes oriented to place and Yes oriented to time MENINGEAL SIGNS: Yes no meningeal signs SPEECH: speech normal GAIT: Yes Normal gait present MOTOR EXAM: 5/5 motor strength present throughout Skin: COMMON NORMALS: no rashes or lesions noted GENERAL SKIN EXAM: no rashes or lesions noted Course Vital Signs: Vital signs: Vital Signs Temperature 98.3 F 03/18/23 10:29 Pulse Rate 58 L 03/18/23 11:33 Respiratory Rate 16 03/18/23 11:33 Blood Pressure 138/62 03/18/23 11:33 Pulse Oximetry 98 03/18/23 11:33 Oxygen Delivery Me thod Room Air 03/18/23 11:33 MDM - Abdominal Pain Medical Decision Making CT scan showing many small and large bowel loops or fluid distended. No obvious obstruction. She does have some thickening and enhancement of small bowel loops seen with enteritis. We will have patient begin a bland liquid diet over the next 48 hours and slowly advance as tolerated. Patient reports her colonoscopy is UTD (performed by Dr. Zhao approximately a year ago). Radiologist did comment on a distended bladder and some mild dilatation of her renal collecting system. When asked about this patient states for many many months she has had sensations of incomplete bladder emptying. She can void easily but feels like she never fully evacuates. She states she has spoken to her primary care provider/[facility] about this. I will place referral for urology for further evaluation. Return ED precautions given. Lab Data 03/18/23 11:29 03/18/23 11:29 Labs/Radiology: Radiology Impressions Abdomen/Pelvis CT 03/18/23 11:00 IMPRESSION: 1. Fluid-filled small and large bowel loops similar to December 17, 2021. No evidence of high-grade obstruction. 2. Sigmoid constipation. 3. Mild thickening and enhancement of small bowel loops in LEFT upper quadrant can be seen with small bowel enteritis. 4. Mild dilatation of the RIGHT renal collecting systems slightly progressed. Urine distended bladder. 5. Correlation for bladder outlet obstruction. 6. No other significant changes compared to previous. Laboratory Results WBC 10.7 10^3/uL (4.0-10.0) H 03/18/23 11:29 RBC 6.26 10^6/uL (4.1-5.3) H 03/18/23 11:29 Hgb 13.7 g/dL (11.5-15.3) 03/18/23 11:29 Hct 41.6 % (37.0-47.0) 03/18/23 11:29 MCV 66.5 fl (81-99) L 03/18/23 11:29 MCH 21.9 pg (28.0-34.0) L 03/18/23 11:29 MCHC 32.9 g/dL (30.0-36.0) 03/18/23 11:29 RDW 18.2 % (12.1-15.1) H 03/18/23 11:29 Plt Count 341 10^3/cmm (130-400) 03/18/23 11:29 MPV Not Reportable 03/18/23 11: Neut % (Auto) 57.7 % 03/18/23 11: Lymph % (Auto) 31.9 % 03/18/23 11:29 [facility] % (Auto) 6.7 % 03/18/23 11:29 Eos % (Auto) 2.6 % 03/18/23 11:29 Baso % (Auto) 0.7 % 03/18/23 11:29 Neut # (Auto) 6.18 10^3/uL (1.8-7.7) 03/18/23 11: Lymph # (Auto) 3.4 10^3/uL (0.8-4.8) 03/18/23 11:29 [facility] # (Auto) 0.7 10^3/uL (0.2-0.9) 03/18/23 11:29 Eos # (Auto) 0.3 10^3/uL (0.0-0.8) 03/18/23 11:29 Baso # (Auto) 0.1 10^3/uL (0.0-0.1) 03/18/23 11: Nucleated RBC % (auto) 0 % 03/18/23 11: Nucleated RBCs # 0.0 /100WBC 03/18/23 11:29 Sodium 138 mmol/L (136-145) 03/18/23 11:29 Potassium 4.6 mmol/L (3.5-5.1) 03/18/23 11: Chloride 103 mmol/L (98-107) 03/18/23 11: Carbon Dioxide 26 mmol/L (22-29) 03/18/23 11:29 Anion Gap 13.6 (5-19) 03/18/23 11:29 BUN 17 mg/dL (8-23) 03/18/23 11:29 Creatinine 0.7 mg/dL (0.5-0.9) 03/18/23 11:29 GFR Calculation 83.7 mL/min (90-130) L 03/18/23 11:29 Glucose 94 mg/dL (65-115) 03/18/23 11: Calculated Osmolality 287 mOsm/kg (285-295) 03/18/23 11:29 Calcium 9.2 mg/dL (8.5-10.5) 03/18/23 11:29 Total Bilirubin 0.6 mg/dL (0.15-1.2) 03/18/23 11: AST 28 U/L (0-32) 03/18/23 11:29 ALT 29 U/L (0-33) 03/18/23 11:29 Alkaline Phosphatase 88 U/L (35-105) 03/18/23 11:29 Total Protein 7.3 g/dL (6.6-8.7) 03/18/23 11: Albumin 4.9 g/dL (3.5-5.2) 03/18/23 11: Globulin 2.4 g/dL (1.3-4.6) 03/18/23 11: Lipase 74 U/L (13-60) H 03/18/23 11:29 Urine Color Yellow (Yellow) 03/18/23 12:33 Urine Appearance Clear (CLEAR) 03/18/23 12:33 Urine pH 6 (5-7) 03/18/23 12:33 Ur Specific Banks 1.010 (1.005-1.030) 03/18/23 12:33 Urine Protein Neg (Negative) 03/18/23 12:33 Urine Glucose (UA) Norm (Normal) 03/18/23 12:33 Urine Ketones Negative (Negative) 03/18/23 12:33 Urine Blood 2+ (Negative) H 03/18/23 12:33 Urine Nitrate Negative (Negative) 03/18/23 12:33 Urine Bilirubin Neg (Negative) 03/18/23 12:33 Urine Urobilinogen Norm mg/dL (Negative) 03/18/23 12:33 Ur Leukocyte Esterase Negative (Negative) 03/18/23 12:33 Urine RBC 5-10 /hpf (0-2) H 03/18/23 12:33 Urine WBC 0-4 /hpf (0-5) H 03/18/23 12:33 Ur Squamous Epith Cells 0-4 /hpf (0-5) H 03/18/23 12:33 Amorphous Sediment Not Reportable 03/18/23 12:33 Urine Bacteria Not Reportable 03/18/23 12:33 Discharge Plan Discharge Patient Disposition: Home Clinical Impression: Feeling of incomplete bladder emptying, Enteritis Condition: Stable Prescriptions: No Action nitroglycerin [Nitrostat] 0.4 mg Tablet, Sublingual 0.4 mg SUBLINGUAL Q5M PRN (Reason: Chest Pain) Rx Instructions: do not exceed 3 doses per episode David-E 400 mg Tablet 400 mg PO QAM Rx Instructions: administer on an empty stomach aspirin 325 mg Tablet 325 mg PO Q6H PRN (Reason: Headache) Tylenol Ex Str Rapid Release 500 mg Tablet 1,000 mg PO Q6H PRN (Reason: Pain) Aleve 220 mg Tablet 220 mg PO Q12H PRN (Reason: Pain) albuterol sulfate 90 mcg/actuation HFA aerosol inhaler 2 puff INHALATION Q4H PRN (Reason: Shortness Of Breath) Vitamin D3 50 mcg (2,000 unit) Capsule 50 mcg PO DAILY Nb [employer] Protein P See Rx Instructions .ROUTE .COMPLEX Rx Instructions: mix 2 tablespoons with 2 tablespoons of ground flaxseed with 2 tablespoons of extra virgin olive oil and drinks once a day Discharge Orders: Discharge ED (Routine); Ordered 03/18/23 Ordered By: Martha Kaye Referrals: Lucila Mathur MD [Primary Care Provider] - Patient Instructions: Enteritis (ED) Activity Restrictions/Additional Instructions: As discussed I want you to begin a bland liquid diet over the next 48 hours. You may slowly advance this as tolerated. I will go ahead and place a referral to see a urologist for your feeling of incomplete bladder emptying. You may also speak to your primary care provider through the [place]. You need to return to the emergency department if you are unable to urinate or begin having any symptoms of a UTI such as burning with urination or any severe flank pain or fevers. I hope you begin to feel better soon. Coding Level of Care Code ED Tip Banding Machine Operator for Josemanuel Kaur
--- NOTE | 2023-03-18 11:00 | CT_ITS ---
WS: [id number] CT ABDOMEN PELVIS TECHNIQUE: Contrast-enhanced CT of the abdomen and pelvis with coronal and sagittal reformatted image s. CLINICAL INFORMATION: upper abdominal pain COMPARISON: CT 2021 DLP: 285.[address] scans at [facility] use at least one of these dose optimization techniques: automated e xposure control; mA and/or kV adjustment per patient size (includes targeted exams where dose is matc hed to clinical indication); or iterative reconstruction. FINDINGS: Prior hysterectomy. Mild intrahepatic biliary dilatation unchanged from previous. A few tiny hepatic cysts. Portal vein and splenic vein. Normal spleen. Normal GE junction. Bibasilar atelectasis. Gallbl adder appears normal. Normal pancreatic parenchymal enhancement. Adrenal glands are normal. No hydronephrosis. Mild RIGHT r enal pelvocaliectasis slightly progressed compared to previous. Normal renal parenchymal enhancement bilaterally. Normal caliber abdominal aorta. Aortic calcification. Celiac and SMA are patent. Urine d istended bladder. Recommend correlation for bladder outlet obstruction. Fluid distended loops of small bowel similar to December 17, 2021. Persistent air within the colon. M ild sigmoid constipation. No evidence of high-grade obstruction. Mild thickening of small bowel loops in LEFT upper quadrant can be seen with small bowel enteritis. Mild disc space narrowing in the lowe r lumbar spine. CT/CT abdomen pelvis w con* [id number] IMPRESSION: 1. Fluid-filled small and large bowel loops similar to December 17, 2021. No e vidence of high-grade obstruction. 2. Sigmoid constipation. 3. Mild thickening and enhancement of small bowel loops in LEFT upper quadrant can be seen with small bowel enteritis. 4. Mild dilatation of the RIGHT renal collecting systems slightly progressed. Urine distended bladder. 5. Correlation for bladder outlet obstruction. 6. No other significant changes compared to previous.
[2023-03-18 11:08] VITALS: BP 138/62; O2SAT 99
[2023-03-18 11:33] VITALS: BP 138/62; PULSE 58; RESP 16; O2SAT 98
[2023-03-18] MEDS: sodium chloride 0.9% 1,000 ML 999 ML IV (11:33)
[2023-03-18 11:47] LABS: Basophils # 0.1 10^3/uL (0.0-0.1); Basophils % 0.7 %; Eosinophils # 0.3 10^3/uL (0.0-0.8); Eosinophils % 2.6 %; Hematocrit 41.6 % (37.0-47.0); Hemoglobin 13.7 g/dL (11.5-15.3); Lymphocytes # 3.4 10^3/uL (0.8-4.8); Lymphocytes % 31.9 %; Mean Corpuscular HGB Conc 32.9 g/dL (30.0-36.0); Mean Corpuscular Hemoglobin 21.9 pg (28.0-34.0); Mean Corpuscular Volume 66.5 fl (81-99); Monocytes # 0.7 10^3/uL (0.2-0.9); Monocytes % 6.7 %; Neutrophils # 6.18 10^3/uL (1.8-7.7); Neutrophils % 57.7 %; Nucleated Red Blood Cells % 0 %; Platelet Count 341 10^3/cmm (130-400); Red Blood Count 6.26 10^6/uL (4.1-5.3); Red Cell Distribution Width 18.2 % (12.1-15.1); White Blood Count 10.7 10^3/uL (4.0-10.0)
[2023-03-18 11:58] LABS: Alanine Aminotransferase 29 U/L (0-33); Albumin Level 4.9 g/dL (3.5-5.2); Alkaline Phosphatase 88 U/L (35-105); Anion Gap 13.6 (5-19); Aspartate Amino Transferase 28 U/L (0-32); Blood Urea Nitrogen 17 mg/dL (8-23); Calcium 9.2 mg/dL (8.5-10.5); Carbon Dioxide 26 mmol/L (22-29); Chloride 103 mmol/L (98-107); Globulin 2.4 g/dL (1.3-4.6); Glomerular Filtration Rate 83.7 mL/min (90-130); Glucose 94 mg/dL (65-115); Lipase 74 U/L (13-60); Osmolality Calculated 287 mOsm/kg (285-295); Potassium 4.6 mmol/L (3.5-5.1); Sodium 138 mmol/L (136-145); Total Bilirubin 0.6 mg/dL (0.15-1.2); Total Protein 7.3 g/dL (6.6-8.7)
[2023-03-18] MEDS: iohexol 350 mg/mL 500 mL Btl (per mL) IV (12:18)
[2023-03-18 13:15] LABS: Add Urine Microscopic? YES; Bilirubin Urine Neg (Negative); Blood Urine 2+ (Negative); Glucose Urine UA Norm (Normal); Ketones Urine Negative (Negative); Leukocyte Esterase Urine Negative (Negative); Nitrate Urine Negative (Negative); Protein Urine Neg (Negative); Urine Appearance Clear (CLEAR); Urine Color Yellow (Yellow); Urobilinogen Urine Norm (Negative); pH Urine 6 (5-7)
[2023-03-18 13:16] LABS: Add Urine Culture? No; Squamous Epithelial Cell Urine 0-4 /hpf (0-5); WBC Urine 0-4 /hpf (0-5)
--- NOTE | 2023-03-21 11:17 | DCPLANNER ---
Addendum entered by Tair Gann 04/05/23 15:36: automotive manager sent patients information to [facility], clinic has received patients information will review it and will call patient with appointment information. Addendum entered by Tari Gann 03/23/23 13:43: automotive manager received the following message from the urology clinic regarding follow up appointment: Need to send to another urologist due to this being a problem that will need follow up supervisor intermediates. Thank you. Original Note: automotive manager had message to schedule a follow up appointment for patient with urology. automotive manager sent patients information to the front office staff at urology. Patients information will be printed and reviewed. Clinic will call patient with appointment information.
== END 2023-03-18 13:52 | disposition home or self-care (01) ==
PROVIDERS: Emergency Provider Physician Assistant; PCP Family Medicine
DX: R39.14 Feeling of incomplete bladder emptying (principal); K52.9 Noninfective gastroenteritis and colitis, unspecified
CPT/HCPCS: 74177; 80053; 81001; 83690; 85025; 96360; 99285; J7030; Q9967

== ENCOUNTER 2024-01-02 14:44 | Emergency (ER) | payer OTHER, SELFPAY ==
[2024-01-02 15:02] VITALS: BP 134/76; PULSE 81; RESP 12; TEMP 37.1; O2SAT 97; BMI 18.6
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
--- NOTE | 2024-01-02 16:15 | W.ED.DIZZY ---
HPI - Dizziness General: Chief Complaint: Dizziness Stated Complaint: hit head, dizzy Time Seen by Provider: 01/02/24 16:08 Source: patient Mode of arrival: ambulatory Limitations: no limitations History of Present Illness: HPI Narrative: 68-year-old female states she was moving a chair with a friend when she lost control but did hit her on the top of the head. She just happened just prior to arrival states that she got dizzy. Hit her she did not have any loss conscious states she has had intermittent headaches since then she denies any vision change denies any neck pain. Associated symptoms: Reports headache(s); Denies chest pain, chills, nausea or vomiting Review of Systems Const: Denies: fever(s) or chills Eyes: Denies: blurry vision or eye discomfort ENMT: Denies: throat pain or dental pain Card: Denies: chest pain Resp: Denies: dyspnea GI: Denies: abdominal pain, nausea, vomiting or diarrhea Musc: Denies: neck pain or back pain Neuro: Reports: headache(s) PFSH ED PFSH: Medical History Xerostomia Glossitis Surgical History History of hysterectomy History of lung surgery History of lumpectomy of left breast Social History Smoking and tobacco/nicotine status: current every day tobacco/nicotine user cigarettes Packs smoked per day: 0.5 Years cigarettes smoked: 53 Physical Exam Const: COMMON NORMALS: no acute distress, patient oriented x3 and healthy appearing HENMT: COMMON NORMALS: normocephalic HEAD & SCALP: normocephalic Eye: COMMON NORMALS: Equal, round and reactive pupils present and EOMs intact bilaterally PUPIL: Yes Equal, round and reactive pupils present Neck/C-Spine: COMMON NORMALS: full ROM and supple CERVICAL SPINE: Yes cervical ROM normal, No pain with cervical ROM and No Cervical spine tenderness Chest: COMMONS NORMALS: normal inspection of the chest Resp: COMMON NORMALS: normal respiratory effort Extremity: COMMON NORMALS: normal to inspection and full ROM Neuro: COMMON NORMALS: patient oriented x3, moves all extremities and no focal motor deficits Psych: COMMON NORMALS: mental status grossly normal, Normal thought process present and cooperative THOUGHT PROCESS: Normal thought process present Skin: COMMON NORMALS: no rashes or lesions noted and no wounds GENERAL SKIN EXAM: no rashes or lesions noted Course Vital Signs: Vital signs: Vital Signs Temperature 98.7 F 01/02/24 15:02 Pulse Rate 67 01/02/24 17:00 Respiratory Rate 16 01/02/24 17:00 Blood Pressure 145/118 01/02/24 17:00 Pulse Oximetry 97 01/02/24 17:00 Oxygen Delivery Me thod Room Air 01/02/24 17:00 MDM - Dizziness Medical Decision Making Patient presents with closed head injury head CT here was negative patient is stable for discharge at this time she is to follow-up with her PCP and return if worsening. Medical Records I reviewed the patient's medical records. Lab Data Radiology Impressions Head CT 01/02/24 16:09 IMPRESSION: No acute intracranial pathology demonstrated by CT. All radiology interpretation(s) finalized by discharge Discharge Plan Discharge Patient Disposition: Home Clinical Impression: Closed head injury Condition: Stable Prescriptions: No Action nitroglycerin [Nitrostat] 0.4 mg Tablet, Sublingual 0.4 mg SUBLINGUAL Q5M PRN (Reason: Chest Pain) Rx Instructions: do not exceed 3 doses per episode OSMEL-e 400 mg Tablet 400 mg PO QAM Rx Instructions: administer on an empty stomach aspirin 325 mg Tablet 325 mg PO Q6H PRN (Reason: Headache) Tylenol Ex Str Rapid Release 500 mg Tablet 1,000 mg PO Q6H PRN (Reason: Pain) Aleve 220 mg Tablet 220 mg PO Q12H PRN (Reason: Pain) albuterol sulfate 90 mcg/actuation HFA aerosol inhaler 2 puff INHALATION Q4H PRN (Reason: Shortness Of Breath) Vitamin D3 50 mcg (2,000 unit) Capsule 50 mcg PO DAILY Nb [employer] Protein P See Rx Instructions .ROUTE .COMPLEX Rx Instructions: mix 2 tablespoons with 2 tablespoons of ground flaxseed with 2 tablespoons of extra virgin olive oil and drinks once a day Discharge Orders: Discharge ED (Routine); Ordered 01/02/24 Ordered By: Theodore Luciano Referrals: Lucila Mathur MD [Primary Care Provider] - 1-3 days Discharge Diet: Advance as tolerated Discharge Activity: Resume usual activity Patient Instructions: Concussion (ED), Head Injury (ED) Coding Level of Care Code ED Parts Analyst for Josemanuel Kaur
[2024-01-02 16:23] VITALS: BP 146/100; PULSE 68; RESP 16; O2SAT 95
[2024-01-02 16:30] VITALS: BP 147/77; PULSE 73; RESP 15; O2SAT 97
[2024-01-02 17:00] VITALS: BP 145/118; PULSE 67; RESP 16; O2SAT 97
[2024-01-02 17:38] VITALS: BP 158/81; PULSE 69; RESP 16; O2SAT 95
== END 2024-01-02 17:40 | disposition home or self-care (01) ==
PROVIDERS: Emergency Provider Emergency Medicine; PCP Family Medicine
DX: S09.8XXA Other specified injuries of head, initial encounter (principal); F17.210 Nicotine dependence, cigarettes, uncomplicated; W20.8XXA Other cause of strike by thrown, projected or falling object, initial encounter
CPT/HCPCS: 70450; 99284

== ENCOUNTER 2024-02-08 13:58 | Outpatient (CLI) | payer MEDICARE, SELFPAY ==
--- NOTE | 2024-02-08 14:05 | MM_ITS ---
WS: [id number] BILATERAL 3D TOMOSYNTHESIS DIGITAL SCREENING MAMMOGRAPHY WITH CAD CLINICAL INFORMATION: SCREENING HISTORY: Screening mammogram. No current complaints. COMPARISON: 2020 TECHNIQUE: Bilateral CC and MLO views. FINDINGS: The breasts are composed of heterogeneous fibroglandular density tissue, which can limit the detectio n of small underlying mass lesions. No suspicious mass, asymmetry, calcifications, or architectural d istortion. No evidence of malignancy. IMPRESSION: MM/[place] [id number] BI-RADS: 1-Negative FOLLOW UP: 1 Year Follow-up Recommend return to annual screening mammography.
== END 2024-02-08 13:59 | disposition home or self-care (01) ==
LOC: RAD 13:59
PROVIDERS: PCP Family Medicine; Visit Provider Physician Assistant
DX: Z12.31 Encounter for screening mammogram for malignant neoplasm of breast (principal)
CPT/HCPCS: 77063; 77067

== ENCOUNTER 2024-02-08 13:58 | Outpatient (CLI) | payer MEDICARE, SELFPAY ==
--- NOTE | 2024-02-08 14:17 | CT_ITS ---
WS: [id number] LDCT LUNG CANCER SCREENING HISTORY: NICOTINE DEPENDENCE, CIGARETTES TECHNIQUE: Axial imaging performed from the apices to 1 cm below the costophrenic angles. Coronal and sagittal reformats are submitted with axial MIP series. All CT scans at [facility] use at least one of these dose optimization techniques: automated exposure control; mA and/or kV adjustment per patient size (includes targeted exams where dose is matched to clinical indication); or iterativ e reconstruction. DLP: 41.01 mGy.cm DIvol: Mean CTDIvol: 0.60 (mGy) COMPARISON: 10/04/2022 Diagnostic quality: Satisfactory. Lungs: No change in the 3 mm nodule, subpleural posterior LEFT upper lobe. Centrilobular emphysema. S ubsegmental areas of scarring or atelectasis at the lung bases. Heart: Normal size heart with no pericardial effusion.. Other findings: Mild atherosclerosis aorta. Normal size pulmonary artery. No chest wall mass. No adre nal mass. IMPRESSION: CT/CT lung screening [id number] LUNG-RADS: 2-Benign Appearance or Behavior FOLLOW UP: 12 Month: Continue annual screening with LDCT OTHER FINDINGS (S MODIFIER): None.
== END 2024-02-08 13:59 | disposition home or self-care (01) ==
LOC: RAD 13:59
PROVIDERS: PCP Family Medicine; Visit Provider Physician Assistant
DX: F17.210 Nicotine dependence, cigarettes, uncomplicated (principal); Z12.2 Encounter for screening for malignant neoplasm of respiratory organs
CPT/HCPCS: 71271

== ENCOUNTER → 2024-08-16 08:54 | Outpatient (BNVA) | payer MEDICARE, SELFPAY | PROVIDERS: PCP Family Medicine; Visit Provider Internal Medicine | DX: R00.2 Palpitations (principal); I49.1 Atrial premature depolarization; I49.3 Ventricular premature depolarization; R00.0 Tachycardia, unspecified | CPT/HCPCS: 93242 ==

== ENCOUNTER 2025-02-20 07:21 | Outpatient (CLI) | payer MEDICARE, SELFPAY ==
--- NOTE | 2025-02-20 07:26 | CT_ITS ---
WS: [id number] LDCT LUNG CANCER SCREENING TECHNIQUE: Noncontrast CT of the chest with coronal and sagittal reformatted images. CLINICAL INFORMATION: NICOTINE DEPENDENCE,CIGARETTES COMPARISON: 2023 DLP: 40.71 mGy.cm DIvol: Mean CTDIvol: 0.70 (mGy) All CT scans at [facility] use at least one of these dose optimization techniques: automated exposure control; mA and/or kV adjustment per patient size (includes targeted exams where dose is matched to clinical indication); or iterative reconstruction. FINDINGS: Tiny 3 mm subpleural nodule LEFT upper lobe. Chronic emphysematous changes. No new suspicious pulmonary parenchymal abnormalities. Subsegmental atelectasis in the lung bases.. Aortic calcification. Normal caliber thoracic aorta. No mediastinal or hilar lymphadenopathy. No axillary lymphadenopathy. Mild thoracic curve. Mild thoracic kyphosis. Chronic anterior wedging in the mid and upper thoracic spine. CT/CT lung screening [id number] IMPRESSION: LUNG-RADS: 2-Benign Appearance or Behavior FOLLOW UP: 12 Month: Continue annual screening with LDCT
== END 2025-02-20 07:22 | disposition home or self-care (01) ==
PROVIDERS: PCP Family Medicine; Visit Provider Physician Assistant
DX: Z12.2 Encounter for screening for malignant neoplasm of respiratory organs (principal); F17.210 Nicotine dependence, cigarettes, uncomplicated; J43.8 Other emphysema; J98.11 Atelectasis; I70.0 Atherosclerosis of aorta; M43.8X4 Other specified deforming dorsopathies, thoracic region; M40.294 Other kyphosis, thoracic region; M48.54XD Collapsed vertebra, not elsewhere classified, thoracic region, subsequent encounter for fracture with routine healing
CPT/HCPCS: 71271

== ENCOUNTER 2025-03-24 07:44 | Emergency (ER) | payer OTHER, SELFPAY ==
[2025-03-24 07:51] VITALS: BP 152/71; PULSE 97; RESP 16; TEMP 36.8; O2SAT 97; BMI 20.1
--- NOTE | 2025-03-24 07:53 | XRR_ITS ---
XR/XR hand RT min 3V* [id number] PROCEDURE INFORMATION: Exam: XR Right Hand Exam date and time: 03/24/2025 7:58 AM Age: 70 years old Clinical indication: Injury or trauma; Other: Smashed in front door; Crushing; Right; Index finger TECHNIQUE: Imaging protocol: Radiologic exam of the right hand. Views: 3 or more views. COMPARISON: No relevant prior studies available. FINDINGS/IMPRESSION: Bones/joints: There is normal anatomic alignment of the bones of the right hand and wrist. No evidence of a fracture or destructive bone lesion. Soft tissues: There is a soft tissue injury of the distal tip of the right 2nd finger. No radiopaque foreign body identified.
--- NOTE | 2025-03-24 07:54 | ED_ITS ---
HPI - Wound/Laceration General: Chief Complaint: Wound/Laceration Stated Complaint: right hand index finger injury Time Seen by Provider: 03/24/25 07:51 Source: patient Mode of arrival: ambulatory Limitations: no limitations History of Present Illness: 70-year-old female states she slammed he r right index finger in a door just prior to arrival she does have a laceration distal tip of her finger she has pain she rates a 2 out of 10 denies any other injuries. Associated symptoms: Denies chills, fever(s), nausea or vomiting Related Data Home Medications ?Medication ?Instructions ?Recorded ?Confirmed nitroglycerin 0.4 mg sublingual 0.4 mg sublingual Q5M PRN Chest 12/17/21 03/18/23 tablet (Nitrostat) Pain s-adenosylmethionine 400 mg tablet 400 mg PO QAM 12/1703/18/23 (OSMEL-e) Nb [employer] Protein P See Rx Instructions .Ro [place] .COMPLEX 03/18/23 03/18/23 acetaminophen 500 mg tablet 1,000 mg PO Q6H PRN Pain 0 03/18/23 03/18/23 albuterol sulfate 90 mcg/actuation 2 puff inhalation Q 4H PRN 03/18/23 03/18/23 aerosol inhaler Shortness Of Breath aspirin 325 mg tablet 325 mg PO Q6H PRN Headache 0 03/18/23 03/18/23 cholecalciferol (vitamin D3) 50 50 mcg PO DAILY 03/18/23 mcg (2,000 unit) capsule (Vitamin D3) naproxen sodium 220 mg tablet 220 mg PO Q12H PRN Pain 03/18/23 03/18/23 (Aleve) Allergies Allergy/AdvReac Type Severity Reaction Status Date / Time cephalexin (From Keflex) Allergy Unknown vomiting Verified 01/02/24 15:02 meperidine (From Demerol) Allergy Unknown tongue Verified 01/02/24 15:02 swelling Penicillins Allergy Unknown ALGY-Anaphy Verified 01/02/24 15:02 laxis azithromycin Allergy Unknown Verified 01/02/24 15:02 Review of Systems Const: Denies: fever(s), chills, body aches or change in appetite ENMT: Denies: throat pain or dental pain Card: Denies: chest pain Resp: Denies: dyspnea GI: Denies: abdominal pain, nausea, vomiting or diarrhea Musc: Reports: extremity pain; Denies: neck pain or back pain Skin/Breast: Denies: rash Neuro: Denies: headache(s) PFSH ED PFSH: Medical History Xerostomia Glossitis Surgical History History of hysterectomy History of lung surgery History of lumpectomy of left breast Social History Smoking and tobacco/nicotine status: current every day tobacco/nicotine user cigarettes Packs smoked per day: 0.5 Years cigarettes smoked: 53 Physical Exam Const: COMMON NORMALS: no acute distress, patient oriented x3 and healthy appearing HENMT: COMMON NORMALS: normocephalic and atraumatic HEAD & SCALP: normocephalic and atraumatic Eye: COMMON NORMALS: conjunctivae normal CONJUNCTIVA: Yes conjunctivae normal Neck/C-Spine: COMMON NORMALS: full ROM and supple Chest: COMMONS NORMALS: normal inspection of the chest Resp: COMMON NORMALS: normal respiratory effort Cardio: COMMON NORMALS: regular rate RATE: regular rate Extremity: COMMON NORMALS: full ROM NARRATIVE EXTREMITY EXAM: 2 cm L-shaped laceration to palmar surfa ce of distal right index finger she has full range of motion no signs of tendon involvement Neuro: COMMON NORMALS: patient oriented x3, moves all extremities and no focal motor deficits Psych: COMMON NORMALS: mental status grossly normal, Normal thought process present and cooperative THOUGHT PROCESS: Normal thought process present Skin: COMMON NORMALS: no rashes or lesions noted GENERAL SKIN EXAM: no rashes or lesions noted Procedures Laceration Laceration 1: Site: hand Side (If applicable): right Size (cm): 2 Description: flap Depth: simple, single layer Local Anesthetic: bupivacaine 0.5% Amount of anesthesia used (mL): 6 Pre-repair: wound explored, irrigated extensively and deep structures intact Skin layer closed with: nylon Size (cm): 5-0 Number of sutures: 3 Technique: simple, interrupted Course Vital Signs: Vital signs: Vital Signs Temperature 98.3 F 03/24/25 07:51 Pulse Rate 97 03/24/25 07:51 Respiratory Rate 16 03/24/25 07:51 Blood Pressure 152/71 03/24/25 07:51 Pulse Oximetry 97 03/24/25 07:51 Oxygen Delivery Me thod Room Air 03/24/25 07:51 MDM - Wound/Laceration Medical Decision Making Patient presents here with a finger laceration did repair laceration here she is to have sutures removed in 7 days no fracture noted she is stable for discharge return if worsening Medical Records I reviewed the patient's medical records. XR interpretation done by ED provider, pending radiology final review ED provider radiology interpretation(s): xr hand: no acute fx Discharge Plan Discharge Patient Disposition: Home Clinical Impression: Laceration Condition: Stable Prescriptions: No Action nitroglycerin [Nitrostat] 0.4 mg Tablet, Sublingual 0.4 mg SUBLINGUAL Q5M PRN (Reason: Chest Pain) Rx Instructions: do not exceed 3 doses per episode OSMEL-e 400 mg Tablet 400 mg PO QAM Rx Instructions: administer on an empty stomach aspirin 325 mg Tablet 325 mg PO Q6H PRN (Reason: Headache) Tylenol Ex Str Rapid Release 500 mg Tablet 1,000 mg PO Q6H PRN (Reason: Pain) Aleve 220 mg Tablet 220 mg PO Q12H PRN (Reason: Pain) albuterol sulfate 90 mcg/actuation HFA aerosol inhaler 2 puff INHALATION Q4H PRN (Reason: Shortness Of Breath) Vitamin D3 50 mcg (2,000 unit) Capsule 50 mcg PO DAILY Nb [employer] Protein P See Rx Instructions .ROUTE .COMPLEX Rx Instructions: mix 2 tablespoons with 2 tablespoons of ground flaxseed with 2 tablespoons of extra virgin olive oil and drinks once a day Discharge Orders: Discharge ED (Routine); Ordered 03/24/25 Ordered By: Theodore Luciano Referrals: Lucila Mathur MD [Primary Care Provider, Family Practice] Discharge Diet: Advance as tolerated Discharge Activity: Resume usual activity Patient Instructions: Care For Your Stitches (ED), Laceration (ED) Activity Restrictions/Additional Instructions: suture removal in 7 days Print Language: Hungarian Coding Level of Care Code ED Sample Grader for Josemanuel Kaur
[2025-03-24] MEDS: BUPivacaine 0.5% INJ 10 mL INJECTION (08:00)
[2025-03-24] MEDS: tetanus-dipt-pertussis 0.5 mL SDV IM (08:32)
[2025-03-24 08:44] VITALS: BP 136/73; PULSE 84; O2SAT 97
== END 2025-03-24 08:45 | disposition home or self-care (01) ==
PROVIDERS: Emergency Provider Emergency Medicine; PCP Family Medicine
DX: S61.210A Laceration without foreign body of right index finger without damage to nail, initial encounter (principal); Z79.82 Long term (current) use of aspirin; F17.210 Nicotine dependence, cigarettes, uncomplicated; X58.XXXA Exposure to other specified factors, initial encounter
CPT/HCPCS: 12001; 73130; 90471; 90715; 99283; J3490

== ENCOUNTER 2025-04-30 07:50 | Outpatient (CLI) | payer OTHER, SELFPAY ==
--- NOTE | 2025-04-30 07:54 | MM_ITS ---
WS: [id number] BILATERAL SCREENING DIGITAL TOMOSYNTHESIS MAMMOGRAM WITH CAD HISTORY: SCREEN COMPARISON: 02/08/2024 and 09/07/2021 Bilateral CC and MLO views with tomosynthesis and synthetic mammography submitted. Computer aided detection analyzed. Breast composition: The breasts are heterogeneously dense, which may obscure small masses. No suspicious masses, microcalcifications or architectural distortion. MM/MM scr BI tomosynthesis [id number] IMPRESSION: BI-RADS: 2 - Benign FOLLOW UP: 1 Year Follow-up
== END 2025-04-30 07:51 | disposition home or self-care (01) ==
LOC: RAD 07:52
PROVIDERS: PCP Family Medicine; Visit Provider Family Medicine
DX: Z12.31 Encounter for screening mammogram for malignant neoplasm of breast (principal); R92.333 Mammographic heterogeneous density, bilateral breasts
CPT/HCPCS: 77063; 77067